=== PATIENT | male | born 2000 | race Caucasian/White ===

== ENCOUNTER 2022-03-22 10:37 | Inpatient (IN) ==
[2022-03-22] MEDS ORDERED: Tdap (Boostrix) Vaccine 0.5 ML SYRINGE IM ONE (10:55)
[2022-03-22 14:37] LABS: Influenza A PCR Negative (Negative); Influenza B PCR Negative (Negative); Resp. Syncytial Virus PCR Negative (Negative)
[2022-03-22 15:25] LABS: SARS-CoV-2 by PCR (In House) Negative (Negative)
[2022-03-22] MEDS ORDERED: Acetaminophen 325 MG TABLET PO PRN (15:29)
[2022-03-22] MEDS ORDERED: Haloperidol Lactate 5 MG/ML VIAL IM PRN (15:29)
[2022-03-22] MEDS ORDERED: haloperidoL 5 MG TABLET PO PRN (15:29)
[2022-03-22] MEDS ORDERED: *HR* LORazepam 1 MG TABLET PO PRN ×2 (15:29→15:36)
[2022-03-22] MEDS ORDERED: Ibuprofen 400 MG TABLET PO PRN (15:29)
[2022-03-22] MEDS ORDERED: *HR* LORazepam 2 MG/ML VIAL IM PRN (15:29)
[2022-03-22] MEDS ORDERED: Mag Hydrox/Al Hydrox/Simeth 30 ML UDC PO PRN (17:36)
[2022-03-22] MEDS ORDERED: MOM Conc 10 ML UD.LIQ PO PRN (17:36)
[2022-03-22] MEDS: Nicotine 2 MG GUM BC PRN (18:50)
[2022-03-22] MEDS ORDERED: traZODone 50 MG TABLET PO PRN (21:00)
[2022-03-23] MEDS ORDERED: Nicotine 21 MG PATCH.TD24 TD SCH (09:00)
[2022-03-23] MEDS: Nicotine 2 MG GUM BC PRN ×2 (09:20→17:11)
[2022-03-23] MEDS ORDERED: traZODone 50 MG TABLET ONE (20:34)
[2022-03-23] MEDS: hydrOXYzine pamoate 25 MG CAPSULE PO PRN (21:01)
[2022-03-23 22:01] VITALS: O2SAT 97
[2022-03-24] MEDS: Nicotine 2 MG GUM BC PRN ×3 (08:53→15:02)
[2022-03-24 09:18] VITALS: BP 111/71; PULSE 78; TEMP 97.7
[2022-03-24] MEDS: hydrOXYzine pamoate 25 MG CAPSULE PO PRN (17:46)
== END 2022-03-24 20:30 | disposition home or self-care (01) | DRG 751 ==
LOC: EMEROOARM 10:37 → 1ANU 15:40
PROVIDERS: ADMIT Psychiatry & Neurology Psychiatry; ATTEND Psychiatry & Neurology Psychiatry

== ENCOUNTER 2022-04-23 18:17 | Inpatient (IN) ==
[2022-04-23 19:08] LABS: Basophils # 0.1 K/mcL (0.0-0.2); Basophils % 0.6 %; Eosinophils # 0.3 K/mcL (0.0-0.6); Eosinophils % 3.8 %; Hematocrit 43.1 % (37.5-50.1); Hemoglobin 14.6 g/dL (12.9-16.9); Immature Granulocytes % 0.2 % (0-4); Lymphocytes # 2.2 K/mcL (0.6-4.6); Lymphocytes % 26.5 %; Mean Corpuscular HGB Conc 33.9 g/dL (31.6-35.5); Mean Corpuscular Hemoglobin 30.5 pg (28.0-33.3); Mean Platelet Volume 11.9 fL (9.4-12.4); Monocytes # 0.7 K/mcL (0.0-1.3); Monocytes % 8.5 %; Neutrophils # 5.1 K/mcL (1.6-8.9); Platelet Count 191 K/mcL (140-400); Red Blood Count 4.79 M/mcL (4.19-5.50); Red Cell Distribution Width 12.6 % (11.5-14.5); Segmented Neutrophils % 60.4 %; White Blood Count 8.4 K/mcL (4.3-11.1)
[2022-04-23 19:09] LABS: Bilirubin,Urine Negative (Negative); Blood,Urine Negative (Negative); Clarity,Urine Clear (Clear); Color,Urine Yellow (Yellow); Glucose,Urine (UA) Normal (Normal); Ketones,Urine Negative (Negative); Leukocyte Esterase,Urine Negative (Negative); Nitrite,Urine Negative (Negative); Protein,Urine Trace mg/dL (Neg-Trace); Specific Gravity,Urine 1.026 (1.010-1.025); Urobilinogen,Urine Normal (Normal)
[2022-04-23 19:21] LABS: Amphetamine Screen,Urine Negative ng/mL (Cutoff=1000); Barbiturate Screen,Urine Negative ng/mL (Cutoff=200); Benzodiazepines Screen,Urine Negative ng/mL (Cutoff=200); Cannabinoid Screen,Urine Negative ng/mL (Cutoff = 50); Cocaine Screen,Urine Negative ng/mL (Cutoff= 300); Opiate Screen,Urine Negative ng/mL (Cutoff=300); Phencyclidine Screen,Urine Negative ng/mL (Cutoff=25)
[2022-04-23 19:21] LABS: Acetaminophen < 10 mcg/mL (10-20); BUN/Creatinine Ratio 8 (6-26); Blood Urea Nitrogen 8 mg/dL (6-20); Calcium 9.3 mg/dL (8.6-10.3); Carbon Dioxide 28 mEq/L (23-29); Chloride 104 mEq/L (98-107); Chol/HDL Ratio 3.3 (0-4.9); Cholesterol 136 mg/dL (< 200); Ethanol < 10 mg/dL (Less than 10); Glucose 46 mg/dL (70-105); HDL Cholesterol 41 mg/dL (40-59); LDL Cholesterol,Calculated 50 mg/dL (< 100); Osmolality,Calculated 283 (280-300); Potassium 3.4 mEq/L (3.5-5.1); Salicylate < 2.5 mg/dL (15.0-30.0); Sodium 139 mEq/L (136-145); Triglycerides 226 mg/dL (< 150)
[2022-04-23 19:41] LABS: Estimated Average Glucose 103 mg/dl; Hemoglobin A1C 5.2 %
[2022-04-23 23:03] LABS: Influenza A PCR Negative (Negative); Influenza B PCR Negative (Negative); Resp. Syncytial Virus PCR Negative (Negative)
[2022-04-23 23:19] LABS: SARS-CoV-2 by PCR (In House) Negative (Negative)
[2022-04-23] MEDS ORDERED: haloperidoL 5 MG TABLET PO PRN (23:25)
[2022-04-23] MEDS ORDERED: *HR* LORazepam 1 MG TABLET PO PRN (23:25)
[2022-04-23] MEDS ORDERED: hydrOXYzine pamoate 25 MG CAPSULE PO PRN (23:25)
[2022-04-23] MEDS ORDERED: Haloperidol Lactate 5 MG/ML VIAL IM PRN (23:25)
[2022-04-23] MEDS ORDERED: *HR* LORazepam 2 MG/ML VIAL IM PRN (23:25)
[2022-04-24] MEDS ORDERED: Mag Hydrox/Al Hydrox/Simeth 30 ML UDC PO PRN (09:08)
[2022-04-24] MEDS ORDERED: MOM Conc 10 ML UD.LIQ PO PRN (09:08)
[2022-04-24] MEDS: Nicotine 21 MG PATCH.TD24 TD SCH (17:05)
[2022-04-24] MEDS: QUEtiapine Fumarate 25 MG TABLET PO PRN (20:05)
[2022-04-24] MEDS: Acetaminophen 325 MG TABLET PO PRN (20:05)
[2022-04-25] MEDS: Nicotine 21 MG PATCH.TD24 TD SCH (09:10)
[2022-04-25] MEDS: Acetaminophen 325 MG TABLET PO PRN (12:20)
[2022-04-25] MEDS: QUEtiapine Fumarate 25 MG TABLET PO PRN (20:24)
[2022-04-26] MEDS: Nicotine 21 MG PATCH.TD24 TD SCH (09:43)
[2022-04-26 09:45] VITALS: BP 118/80; PULSE 100; TEMP 98; O2SAT 98
== END 2022-04-26 13:03 | disposition home or self-care (01) | DRG 751 ==
LOC: EMEROOARM 18:17 → 1ANU 23:23
PROVIDERS: ADMIT Psychiatry & Neurology Psychiatry; ATTEND Psychiatry & Neurology Psychiatry